=== PATIENT | male | born 1935 | race Caucasian/White ===

== ENCOUNTER → 2016-06-14 | Outpatient (CLI) | payer OTHER ==
--- NOTE | 2016-06-14 11:44 | DX ---
DEXA Bone Mineral Densitometry Clinical Indications: Waldenstrom macroglobulinemia, followup osteoporosis, 80-year-old male Comparison: March 23, 2011 Technique: Bone Mineral Densitometry (BMD) by Dual Energy X-Ray Absorptiometry (DEXA) was performed utilizing the [employer] scanner. The lumbar spine was evaluated in the AP projection. The bilat eral hips and forearm were evaluated in the AP projection. Vertebral fracture assessment was also pe rformed. AP Lumbar Spine: The L1, L2, L3 and L4 vertebral bodies were evaluated. BMD: 1.081 gm/cm2 T-score: -1.2 SD Z-score: -1.3 SD Significantly increased by 5.6%, likely related to degenerative sclerosis. AP Left Hip: Neck BMD: 0.696 gm/cm2 T-score: -2.9 SD Z-score: -1.8 SD No significant change in total BMD. AP Right Hip: Neck BMD: 0.753 gm/cm2 T-score: -2.4 SD Z-score: -1.4 SD No significant change in total BMD AP Left Forearm, 06/15: BMD: 0.873 gm/cm2 T-score: -1.2 SD Z-score: 0 SD No significant change. Vertebral Fracture Assessment: No significant fracture deformity. There is a stable mild T12 maritza vanessa deformity. No new compressions have developed. Atherosclerotic calcification of the abdominal ao rta coupled with degenerative spurring in the lumbar spine likely increase lumbar BMD. Conclusion: Considering the lowest measured site, the patient has stable osteoporosis. The ten year FRAX risk for any major osteoporotic fracture is 21.1% and for a hip fracture is 10.5%. [<Any bone loss in this patient is probably related to aging , testosterone deficiency or the patient 's chronic anemia. Supplementing an insufficient diet to achieve total intakes of 1500 mg calcium and 800 International Units of vitamin D daily should be considered. Osteoporosis prevention and treatment begins by modify ing risk factors. The patient should be encouraged to participate in a regular exercise program that includes weightbearing and muscle strengthening regimens, as is clinically appropriate. Recommend follow-up DEXA in one year to assess the efficacy of pharmacologic intervention.
== END ==
LOC: FIMAGING 10:37
PROVIDERS: ATTEND Family Medicine
DX: Z13.820 Encounter for screening for osteoporosis (principal); M81.0 Age-related osteoporosis without current pathological fracture

== ENCOUNTER → 2016-11-23 | Outpatient (CLI) | payer OTHER | LOC: FIMAGING 08:04 | PROVIDERS: ATTEND Orthopaedic Surgery | PROC: CW7 Nuclear Medicine, Anatomical Regions, Systemic Nuclear Medicine Therapy (ICD-10-PCS; principal; 2016-11-23) | DX: M25.562 Pain in left knee (principal); Z96.652 Presence of left artificial knee joint; Z96.651 Presence of right artificial knee joint | CPT/HCPCS: 78315; 79101; A9503 ==

== ENCOUNTER → 2017-01-24 | Outpatient (CLI) | payer OTHER | LOC: FIMAGING 14:13 | PROVIDERS: ATTEND Family Medicine | DX: J44.9 Chronic obstructive pulmonary disease, unspecified (principal) ==

== ENCOUNTER → 2018-08-10 | Outpatient (CLI) | payer OTHER | LOC: FIMAGING 11:14 | PROVIDERS: ATTEND Internal Medicine Interventional Cardiology | DX: J44.9 Chronic obstructive pulmonary disease, unspecified (principal); R06.02 Shortness of breath; R09.02 Hypoxemia; I25.10 Atherosclerotic heart disease of native coronary artery without angina pectoris ==

== ENCOUNTER → 2018-08-24 | Outpatient (CLI) | payer OTHER | LOC: BHFA 10:00 | PROVIDERS: ATTEND Internal Medicine Interventional Cardiology | DX: I48.91 Unspecified atrial fibrillation (principal) ==